=== PATIENT | female | born 1935 | race Caucasian/White ===

== ENCOUNTER → 2017-02-01 | Outpatient (CLI) | payer OTHER ==
[~2017-02-01] MED LIST: CALCIUM500 MG; DESYREL50 M1; METOPROLOL TAR25 MG; MOTRIN100 MG PO; [UNRECOGNIZED DRUG - OTHER]
--- NOTE | ~2017-02-01 | MY11 ---
[facility] A Service [facility] RADIOLOGY TEXT RESULTS PATIENT: RAFAEL KEITH LOCATION: [facility] : 35 UNIT #: [id number] AGE: [address]: Shira Urrutia MD SEX: F ORDER DR: [id number] [address] [address] [id number] P MR#: [id number] Acc #: [id number] NAME: RAFAEL KEITH : 1935 SEX: F STUDY DATE/TIME: 02/01/2017 10:29 UNIT: [facility] ROOM: STUDY DESCRIPTION: MY Mammogram Screening Dig [place] Attending Physician: Shira Urrutia M.D. Referring Physician: Shira Urrutia M.D. Ordering Physician: Shira Urrutia M.D. Primary Care Physician: Shira Urrutia M.D. MEDICAL IMAGING REPORT This report is preliminary unless electronic signature is present. EXAM Digital screening mammogram, 02/01/2017 HISTORY 81-year-old woman strong family history, sister. Annual screening. COMPARISON Mammograms date to 06/13/2007 with most recent 01/31/2016. FINDINGS Digital imaging of each breast was completed utilizing standard craniocaudal and mediolateral-oblique projections. Review and interpretation of digital mammograms include a second review in conjunction with FDA-approved CAD device. There is an overall increase in the parenchymal presentation bilaterally with a generalized fibronodular pattern in each breast. There are no breast masses and I see no asymmetry in the parenchymal presentation. There are no suspicious microcalcifications and I see no architectural disturbance. IMPRESSION Benign mammogram. One-year followup recommended. Patients over the age of 40 are entered into a reminder system with target due date for the next mammogram. A result letter will also be sent to the patient. BIRADS: 2 Benign finding Dictated by... Tyrese Conner M.D. THIS IS AN ELECTRONICALLY VERIFIED REPORT [facility] A Service [facility] RADIOLOGY TEXT RESULTS PATIENT: RAFAEL KEITH [id number] 35 UNIT #: [id number] AGE: [address]: Shira Urrutia MD SEX: F ORDER DR: Tyrese Conner M.D. at 02/01/2017 12:39 PM Toribio TD: 02/01/2017 12:14 JOB #: [id number] MEDICAL IMAGING REPORT Page 1 of 1
--- NOTE | ~2017-02-01 | BD1 ---
[facility] A Service of [facility] & [facility] RADIOLOGY TEXT RESULTS PATIENT: RAFAEL KEITH LOCATION: [facility] : 35 UNIT #: [id number] AGE: [address]: Shira Urrutia MD SEX: F ORDER DR: [id number] [place] [id number] P MR#: [id number] Acc #: [id number] NAME: RAFAEL KEITH : 1935 SEX: F STUDY DATE/TIME: 02/01/2017 10:57 UNIT: [facility] ROOM: STUDY DESCRIPTION: Dexa Bone Dens 1+ Site Attending Physician: Shira Urrutia M.D. Referring Physician: Shira Urrutia M.D. Ordering Physician: Shira Urrutia M.D. Primary Care Physician: Shira Urrutia M.D. MEDICAL IMAGING REPORT This report is preliminary unless electronic signature is present. EXAM DEXA scan 02/01/2017 HISTORY Status post menopause with no hormone replacement therapy. Osteopenia. Hypertension with blood pressure medication for 12 years. FINDINGS Bone mineral density in the lumbar spine from L1-L4 is 0.973 g/cm2 which is 1.7 standard deviations below the mean when compared to the young adult reference population which is characteristic of osteopenia. This is 0.2 standard deviations above the mean when compared to the age-matched population. Compared with 12/02/2012 there has been a decrease in bone mineral density in the lumbar spine of 3.9%. Bone mineral density in the left femoral neck was 0.694 g/cm2 which is 2.5 standard deviations below the mean when compared to the young adult reference population which is characteristic of osteoporosis. This is 0.2 standard deviations below the mean when compared to the age-matched population. Compared with 12/02/2012 there has been a decrease in bone mineral density in the left hip of 5.2%. Bone mineral density in the right femoral neck was 0.646 g/cm2 which is 2.8 standard deviations below the mean when compared to the young adult reference population which is characteristic of osteoporosis. This is 0.6 standard deviations below the mean when compared to the age-matched population. Compared 12/02/2012 there has been a decrease in bone mineral density in the right hip of 1.2%. IMPRESSION Bone mineral density in the lumbar spine characteristic of osteopenia and within the hips bilaterally characteristic of osteoporosis. Compared with 12/02/2012 there has been a decrease in bone mineral density in the lumbar spine and the hips bilaterally. [facility] A Service of [facility] RADIOLOGY TEXT RESULTS PATIENT: RAFAEL KEITH LOCATION: [facility] : 35 UNIT #: [id number] AGE: [address]: Shira Urrutia MD SEX: F ORDER DR: Dictated by... Igor Marquez M.D. THIS IS AN ELECTRONICALLY VERIFIED REPORT Igor Marquez M.D. at 02/02/2017 9:54 AM YUNIEL/sudha TD: 02/01/2017 13:06 JOB #: [id number] MEDICAL IMAGING REPORT Page 1 of 1
== END | disposition home or self-care (01) ==
LOC: SMAM 09:31
DX: Z12.31 Encounter for screening mammogram for malignant neoplasm of breast (principal); I10 Essential (primary) hypertension; Z78.0 Asymptomatic menopausal state; Z79.899 Other long term (current) drug therapy; Z80.3 Family history of malignant neoplasm of breast
CPT/HCPCS: 77080; G0202